=== PATIENT | male | born 1990 | race Caucasian/White ===

== ENCOUNTER 2025-02-11 23:19 | Emergency (ER) | payer OTHER, SELFPAY ==
[2025-02-11 23:20] VITALS: BP 148/77; PULSE 96; RESP 14; TEMP 36.6; O2SAT 100
--- OUTSIDE RECORDS SUMMARY | 2025-02-11 23:21 | XMS_ITS | Clinical Summary ---
Author Organization [facility] Address [address] [place] [id number] Care Team Providers Care Lining Maker Name Role Phone Jose Driscoll MD Primary Care Provider [phone] Allergies No known active allergies Social History Tobacco Use Types Packs/Day Years Used Date Smoking Tobacco: Never Assessed Sex and Gender Information Value Date Recorded Sex Assigned at Not on file Legal Sex Male 7:21 PM CDT Gender Identity Not on file Sexual Orientation Not on file Last Filed Vital Signs Vital Sign Reading Time Taken Comments Blood Pressure 126/78 01/05/2023 10:33 PM CDT Pulse 68 01/05/2023 10:33 PM CDT Temperature 37.1 C (98.7 F) 01/05/2023 7:47 PM CDT Respiratory Rate 20 01/05/2023 10:3 3 PM CDT Oxygen Saturation 98% 01/05/2023 7:47 PM CDT Inhaled Oxygen Concentration - - Weight 113.7 kg (250 lb 10.6 oz) 2022 7:47 PM CDT Height 180.3 cm (5' 11) 01/05/2023 7:47 PM CDT Body Mass Index 34.96 01/05/2023 7:47 PM CDT Plan of Treatment Health Maintenance Due Date Last Done Comments Annual Physical 11/18/1995 Hepatitis C 2010 HPV Vaccines (1 - 3-dose SCDM series) 11/18/2019 COVID-19 Vaccine ( season) 2024 03/22/2021, 07/02/2020, 06/04/2020 Influenza Adult (#1) 2024 02/11/2022, 12/25/2020, 01/31/2020, Additional history exists DTaP, Tdap and Td Vaccines (8 - Td or Tdap) 04/07/2031 04/07/2021, 09/16/2011, 10/07/2003, Additional history exists Hepatitis B Vaccines Completed 02/24/1994, 1993, 1992 Meningococcal Vaccine Completed 09/16/2011, 007 Hepatitis A Vaccines Completed 12/13/2012, 09/16/19 12 Meningococcal B Vaccine Aged Out No l onger eligible based on patient's age to complete this topic Pneumococcal Vaccine: Pediatrics (0 to 5 Years) and At-Risk Patients (6 to 49 Years) Aged Out No longer eligible based on patient's age to complete this topic RSV Immunizations Under 20 Months Aged Out No longer eligible based on patient's age to complete this topic Insurance [facility] [place] [address] [facility] Care Teams Lining Maker Relationship Specialty Start Date End Date Jose Driscoll MD [address] [place] [id number] PCP - General INTERNAL MEDICINE 01/05/23
--- OUTSIDE RECORDS SUMMARY | 2025-02-11 23:21 | XMS_ITS | Clinical Summary ---
Author Organization [facility] Address [address] [place] [address], [address] [place] [address] Care Team Providers Care Naphthalene Operator Name Role Phone Unavailable Primary Care Provider Unavailabl e Social History Tobacco Use Types Packs/Day Years Used Date Smoking Tobacco: Never Assessed Sex and Gender Information Value Date Recorded Sex Assigned at Not on file Legal Sex Male 8:37 PM EDT Gender Identity Not on file Sexual Orientation Not on file Plan of Treatment Not on file
[2025-02-12 03:11] VITALS: BP 125/73; PULSE 86; RESP 14; TEMP 36.8; O2SAT 99
--- NOTE | 2025-02-12 07:16 | ED.SKABFB ---
HPI - Skin/Abscess/Foreign Bdy General Chief complaint: Extremity Problem,Nontraumatic Stated complaint: infected middle finger Time Seen by Provider: 02/12/25 06:51 History of Present Illness HPI narrative: Patient presents here with infection to his right middle finger, started about 2 days ago, has gotten more swollen. No pain with movement of his fingers, no fevers or chills. Related Data Allergies Allergy/AdvReac Type Severity Reaction Status Date / Time No Known Allergies Allergy Mild Verified 02/11/25 23:19 Review of Systems Review of Systems: All systems reviewed & are unremarkable except as noted in HPI and below Exam Narrative: EXAMINATION OF ORGAN SYSTEMS/BODY AREAS: Constitutional: Vital signs per nursing GENERAL:[No acute distress, non-toxic appearing.] HEAD: Normal with no signs of head trauma. EYES: EOMI, conjunctiva normal ENT: Hearing grossly intact LUNGS: Nonlabored breathing. HEART: [Regular rate and rhythm] ABD: [Soft], [nontender to palpation] EXT: Normal range of motion the the right middle finger is a little bit more swollen, with some fluctuance near the nail SKIN: Paronychia right middle finger NEURO: [Alert and oriented x 3. No gross focal sensory or strength deficits.] PSYCH: Normal affect Course Vital Signs Vital signs: Vital Signs Temperature 98 F 02/11/25 23:20 Pulse Rate 96 02/11/25 23:20 Respiratory Rate 14 02/11/25 23:20 Blood Pressure 148/77 H 02/11/25 23:20 Pulse Oximetry 100 02/11/25 23:20 Oxygen Delivery Room Air 02/11/25 23:20 Temperature 98.2 F 02/12/25 03:11 Pulse Rate 86 02/12/25 03:11 Respiratory Rate 14 02/12/25 03:11 Blood Pressure 125/73 02/12/25 03:11 Pulse Oximetry 99 02/12/25 03:11 Oxygen Delivery Room Air 02/11/25 23:20 Procedures Abscess I/D hand: Date of Incision: 02/12/25 Time of Incision: 07:18 Side (if applicable): right Local Anesthetic: lidocaine 1% Amount of anesthesia used (mL): 2 Technique: other (Opened paronychia right middle finger with 18 gauge sharp needle) Amount of fluid expressed (mL): 3 Irrigation: Yes Packing used?: none I&D Results: Pus MDM MDM Narrative Medical decision making narrative: Patient was swollen right middle finger, started about 2 days ago, on exam he has normal range of motion of the right middle finger is slightly swollen especially mostly around the nail, with fluctuance consistent with a paronychia. I have very low concern for joint involvement given the painless range of motion. Verbal consent obtained, digital block performed with 1% lidocaine, 2 cc total, with anesthesia achieved, then 18 gauge sharp needle used to open paronychia with large amount of purulent discharge expressed. Patient tolerated this very well. Dressing applied. Tetanus updated, started on antibiotics, with follow-up to hand surgery given and strict return precautions given in person and on paper. Patient agreeable to plan Differential Diagnosis Differential Diagnosis: Paronychia, tenosynovitis Discharge Plan Discharge Clinical Impression: Paronychia Patient Disposition: Home Condition: Stable Instructions: Antibiotic Form, Paronychia (ED) Additional Instructions: Please take the antibiotics as prescribed and follow-up with a hand surgeon. If you start having worsening symptoms specially if your hand swells more, if you are unable to move it without any pain, or anything else concerning, please return to the emergency room. Patient Language: Anguill[place] Prescriptions: New doxycycline hyclate 100 mg capsule 100 mg PO Q12H 7 Days Qty: 14 0RF Follow-up/Referrals: Bonnie Bailey MD [Physician, Plastic Surgery] - 2 Days PHYSICIAN,BIOINFORMATICS ENGINEER [Primary Care Provider, Internal Medicine]
[2025-02-12] MEDS: DOXYCYCLINE HYCLATE 100 MG TABLET PO (07:24)
[2025-02-12] MEDS: TETANUS,DIPHTHERIA,AC PERTUSSIS ADULT (0.5 ML) BOOSTRIX IM (07:24)
[2025-02-12 07:27] VITALS: BP 138/90; PULSE 87; RESP 18; O2SAT 97
== END 2025-02-12 07:39 | disposition home or self-care (01) ==
PROVIDERS: Emergency Provider Emergency Medicine
DX: L03.011 Cellulitis of right finger (principal); Z23 Encounter for immunization
CPT/HCPCS: 10060; 90471; 90715; 99283; A9270